=== PATIENT | male | born 1965 | race Caucasian/White ===

== ENCOUNTER 2016-10-23 05:28 | Day surgery (SDC) | payer OTHER ==
[2016-10-21 16:01] LABS: HEMOGLOBIN 15.3 g/dL (13.7-18.0)
[2016-10-21 16:12] LABS: BLOOD UREA NITROGEN 17 mg/dL (7-18)
[~2016-10-23] VITALS: Ht 170.2 cm; Wt 67.0 kg
[~2016-10-23 05:28] MED LIST: TYLENOL PO
[2016-10-23] MEDS ORDERED: LACTATED RINGERS 1,000 ML IV SCH (06:20)
[2016-10-23 06:22] VITALS: BP 129/81
[2016-10-23] MEDS ORDERED: THROMBIN 20,000 UNIT VIAL TP ONE (06:39)
[2016-10-23] MEDS ORDERED: BUPIVACAINE/PF-EPI 0.5% 1:200K ONE (06:39)
[2016-10-23] MEDS ORDERED: BACITRACIN 50,000 UNIT ONE (06:39)
[2016-10-23] MEDS ORDERED: KETAMINE 10 MG/ML, 20ML ONE (07:21)
[2016-10-23] MEDS ORDERED: FENTANYL PF 250 MCG/5ML ONE (07:21)
[2016-10-23] MEDS ORDERED: PROPOFOL 10 MG/ML, 50ML ONE (07:27)
[2016-10-23] MEDS ORDERED: ONDANSETRON 2MG/ML, 2ML ONE (07:27)
[2016-10-23] MEDS ORDERED: PROPOFOL 10 MG/ML, 20ML ONE (07:27)
[2016-10-23] MEDS ORDERED: DEXAMETHASONE 4 MG/ML, 1ML ONE (07:27)
[2016-10-23] MEDS ORDERED: SUCCINYLCHOLINE 20 MG/ML, 10ML ONE (07:27)
[2016-10-23] MEDS ORDERED: CEFAZOLIN 1,000 MG ONE (07:27)
[2016-10-23] MEDS ORDERED: METOCLOPRAMIDE 5 MG/ML, 2ML ONE (07:27)
[2016-10-23] MEDS ORDERED: ROCURONIUM 10 MG/ML ONE (07:27)
[2016-10-23] MEDS ORDERED: HYDROmorphone 1 MG/ML, 1ML IV PRN (09:00)
[2016-10-23] MEDS ORDERED: MIDAZOLAM 1 MG/ML, 2ML IV PRN (09:00)
[2016-10-23] MEDS ORDERED: LABETALOL 5MG/ML, 20ML IV PRN (09:00)
[2016-10-23] MEDS ORDERED: ONDANSETRON 2MG/ML, 2ML IVPush PRN (09:00)
[2016-10-23] MEDS ORDERED: PROMETHAZINE 25 MG/ML, 1ML IV PRN (09:00)
[2016-10-23] MEDS ORDERED: hydrALAzine 20 MG/ML, 1ML IV PRN (09:00)
[2016-10-23] MEDS ORDERED: OXYcodone 5 MG/5 ML ORAL.SOL UDC PO PRN (09:00)
[2016-10-23] MEDS ORDERED: MEPERIDINE/PF 25MG/0.5ML IVPush PRN (09:00)
[2016-10-23] MEDS ORDERED: FENTANYL PF 100 MCG/2ML IV PRN (09:00)
[2016-10-23] MEDS ORDERED: OXYcodone 5 MG/5 ML ORAL.SOL UDC ONE (09:09)
[2016-10-23] MEDS ORDERED: FENTANYL PF 100 MCG/2ML ONE (09:09)
== END 2016-10-23 11:20 | disposition home or self-care (01) ==
LOC: OUT 05:28
PROVIDERS: ATTEND Neurological Surgery
DX: M51.17 Intervertebral disc disorders with radiculopathy, lumbosacral region (principal); M48.07 Spinal stenosis, lumbosacral region
CPT/HCPCS: 36415; 63030; 71020; 72100; 80048; 85025; 85610; 85730; 93005; J0330; J0690; J1100; J2405; J2704; J2765; J3010